=== PATIENT | female | born 1980 | race Hispanic/Latino ===

== ENCOUNTER 2018-02-27 18:19 | Emergency (ER) | payer BC ==
[~2018-02-27] VITALS: Ht 157.5 cm; Wt 77.1 kg
--- OUTSIDE RECORDS SUMMARY | 2018-02-27 18:22 | XMS REPORT | Clinical Summary ---
Author Author [facility] Organization [facility] Address Unknown Phone Unavailable Care Team Providers Care Technical Support Intern Name Role Phone Jacoby Lyon MD PCP Allergies No Known Allergies Current Medications Prescription Sig. Disp. Refills Start End Date Status Date hydrochlorothiazide TAKE ONE (1) TABLET(S) BY 11 06/01/20 Active (HYDRODIURIL) 25 MG MOUTH ONCE A DAY. 16 tablet SUMAtriptan (IMITREX) 100 TAKE ONE (1) TABLET(S) BY 5 06/11/20 Active MG tablet MOUTH ONE TIME NEEDED 16 DIRECTED, MAY REPEAT IN 2 HOURS IF NEEDED. MAX OF 2 TABLETS IN 24 HOURS. LORAZepam (ATIVAN) 0.5 MG TAKE ONE (1) TABLET(S) BY 0 04/23/20 Active tablet MOUTH TWICE A DAY 16 NEEDED FOR ANXIETY AT HOME. ondansetron ODT (ZOFRAN Take 1 tablet (4 mg 25 tablet 0 07/22/20 Active ODT) 4 MG disintegrating total) by mouth every 8 16 tablet (eight) hours as needed for nausea or vomiting for up to 25 doses. Active Problems No known active problems Family History Relation Name Status Comments Daughter Alive Father Alive Mother Alive Social History Tobacco Use Types Packs/Day Years Used Date Never Smoker Alcohol Use Drinks/Week oz/Week Comments Yes 1 glass per month Sex Assigned at Date Recorded Not on file Last Filed Vital Signs Not on file Plan of Treatment Health Maintenance Due Date Last Done Comments PAP SMEAR 2000 INFLUENZA VACCINE 06/27/2017 Results Not on fileafter 02/26/2017 Insurance Payer Benefit Subscriber ID Type Phone Address Plan / Group BCBS BCBS xxxxxxxxxxxx PPO CHOICE PPO/IBIS GRIMALDO PPO
[2018-02-27] MEDS ORDERED: SODIUM CHLORIDE 0.9% 1000ML 1,000 ML ONE (18:45)
[2018-02-27] MEDS ORDERED: ONDANSETRON HCL 4 MG ORAL DISINTEGRATING TAB SL ONE (18:45)
[2018-02-27] MEDS ORDERED: DICYCLOMINE HCL 20 MG TAB PO ONE (19:45)
[2018-02-27] MEDS ORDERED: ZOFRAN ODT4 MG SL (19:55)
[2018-02-27 20:18] VITALS: BP 134/72
== END 2018-02-27 20:22 | disposition home or self-care (01) ==
LOC: FSED 18:19
DX: R10.31 Right lower quadrant pain (principal); R11.0 Nausea; R19.7 Diarrhea, unspecified; A09 Infectious gastroenteritis and colitis, unspecified; I10 Essential (primary) hypertension
CPT/HCPCS: 36415; 74177; 80048; 81003; 81025; 83690; 85025; 96374; 99284; J7030

== ENCOUNTER → 2018-03-16 | Day surgery (SDC) | payer BC ==
[~2018-03-16] MED LIST: ACETAMINOPHEN 1000 MG/100 ML 100 ML IV ONE; FENTANYL CITRATE/PF 100MCG/2 ML INJ ONE; HYDROCHLOROTHIA25 MG PO; HYOSCYAMINE SULFATE 0.5 MG/ML AMP ONE; LIDOCAINE HCL 2% LOCAL INJ 5 ML SDV VIAL INJ ONE; MIDAZOLAM HCL 2 MG/2 ML VIAL ONE; POTASSIUM PO; PROPOFOL IV EMULSION 10 MG/ML 50 ML VIAL ONE; VITAMIN D1000 UNI1 PO; ZOFRAN ODT4 MG SL; ZYRTEC10 M3 PO
--- OUTSIDE RECORDS SUMMARY | 2018-03-16 13:25 | XMS REPORT | Continuity of Care Document ---
Author Author [facility] Organization [facility] Address [address] [place] [address] Phone Unavailable Care Team Providers Care Certified Bench Jeweler Technician Name Role Phone PANDA COLEMAN MD PCP Insurance Providers Guarantor Jaja Deluna Address [address] [place] [address] Email [email or web address] Payer [facility] Policy Number [id number] Subscriber's Name Jaja Deluna Relationship 18 Self / Same As Patient Group Number [id number] Group Name [facility] Effective Date 17 Advance Directives Directive Response Recorded Date/Time Does the patient have an advance directive? No 09/13/12 9:04am If yes, is advance directive on file with [facility]? No 09/13/12 9:04am If not on file with [facility] will patient provide a copy? No 09/13/12 9:04am Problems No problem information available. Medications Current Home Medications Medication Dose Units Route Directions Days Qty Instructions Start Date Ondansetron (Zofran Odt) 4 Mg Tab.rapdis 4 Mg Sublingual Every 6 Hours as needed for Nausea 14 may substitute standard tablets vs ODT 02/27/18 Social History Smoking Status Start Date Stop Date Never Smoker Hospital Discharge Instructions No hospital discharge instruction information available. Plan of Care Discharge Date 02/27/18 8:22pm Disposition HOME, SELF-CARE Condition at Discharge Stable Instructions/Education Provided Abdominal Pain - Adult Forms Provided Work/School Excuse Prescriptions See Medication Section Referrals PANDA COLEMAN MD Address: [address] [place] [phone] Additional Instructions/Education Follow up with your doctor as scheduled next week. Be sure to complete your colonoscopy as planned with your physician. You may use the prescription provided for you by your doctor for cramping and here we were given another prescription which will treat nausea. Functional Status No functional status information available. Allergies, Adverse Reactions, Alerts No known allergies. Immunizations No immunization information available. Vital Signs Acute Vital Signs Vital Response Date/Time Pulse Pulse Rate (adult) 85 bpm (60 - 90) 02/27/2018 8:18pm Respiratory Rate 16 bpm (12 - 24) 02/27/2018 8:18pm Blood Pressure 134/72 mm Hg 02/27/2018 8:18pm Height 5 ft 2 in 02/27/2018 6:30pm Weight 170 lb 02/27/2018 6:30pm Body Mass Index 31.1 kg/m^2 02/27/2018 6:30pm Results No relevant diagnostic test, laboratory data and/or discharge summary information available. Procedures No procedure information available. Encounters Encounter Location Arrival/Admit Date Discharge/Depart Date Attending Provider Departed Emergency Room [facility] 02/27/18 6:19pm 8:22pm KOJO TOMPKINS MD
--- OUTSIDE RECORDS SUMMARY | 2018-03-16 13:25 | XMS REPORT | Clinical Summary ---
Author Author [facility] Address Unknown Phone Unavailable Care Team Providers Care Co Supervisor Grounds And Landscape Name Role Phone Jacoby Lyon MD PCP [...] Done Comments PAP SMEAR 2000 INFLUENZA VACCINE 06/27/2018 Results Not on fileafter 03/15/2017 Insurance Payer Benefit Subscriber ID Type Phone Address Plan / Group BCBS BCBS xxxxxxxxxxxx PPO CHOICE PPO/IBIS GRIMALDO PPO
--- NOTE | 2018-03-16 18:18 | Operative Report ---
DATE OF PROCEDURE: March 16, 2018 REFERRING PHYSICIAN: PANDA COLEMAN MD PROCEDURE PERFORMED: Esophagogastroduodenoscopy with biopsies and a colonoscopy with biopsies. INDICATIONS FOR ESOPHAGOGASTRODUODENOSCOPY: Nausea, heartburn, bloating. INDICATIONS FOR COLONOSCOPY: Lower abdominal pain, constipation, history of bright red blood per rectum. MEDICATION: Patient was done under MAC. Please see anesthesiologist's note. PROCEDURE: With patient in the left lateral decubitus position, flexible fiberoptic Olympus gastroscope was introduced into the esophagus under direct visualization without any difficulty. There was some patchy erythema noted in distal esophagus. The scope was then advanced with ease into the stomach. Mucosa overlying the antrum revealed some serpiginous ulcers and erosions. Biopsies were obtained. Also biopsies were obtained from the inflamed gastric mucosa and sent to stain for H. pylori. Pylorus appeared to be of normal contour and shape. Was intubated with ease and the scope was advanced all the way to the 2nd portion of the duodenum. The scope was then withdrawn slowly. Mucosa overlying the proximal 2nd portion and the duodenal bulb appeared to be within normal limits. The scope was then withdrawn back into the stomach and retroflexed and mucosa overlying the fundus appeared to be within normal limits. A minute nodule was noted in the cardia that as biopsied. The scope was then straightened out. The stomach was decompressed. The scope was subsequently withdrawn. Patient tolerated the procedure well. IMPRESSION: 1. Distal esophagitis. 2. Minute nodule cardia, biopsied. 3. Gastritis, erosive, biopsied. Biopsy sent stain for H. pylori. PLAN: Follow up histology. Initiate Protonix 40 mg 1 p.o. q.a.m. a.c. PROCEDURE: Patient was then turned around and after adequate lubrication of the anal canal a flexible fiberoptic Olympus colonoscope was inserted into the rectum with ease and advanced all the way to the cecum. Prep overall was suboptimal primarily in the right colon. The ileocecal valve was intubated. The scope was advanced into the terminal ileum. Biopsies were obtained. The scope was then withdrawn back into the colon. It was then withdrawn slowly. Whatever was visualized of the mucosa overlying the cecum, ascending colon and transverse colon appeared to be within normal limits. The mucosa overlying the descending colon also grossly appeared to be within normal limits. The mucosa overlying the sigmoid and rectum revealed some patchy areas of mild to moderate inflammatory changes and biopsies were obtained. The scope was then retroflexed into the distal rectum and the area around the dentate line appeared to be within normal limits. The scope was then straightened out. It was subsequently withdrawn. Patient tolerated the procedure well. IMPRESSION 1. Suboptimal prep. 2. Mild proctosigmoiditis. PLAN: Follow up histology. Initiate high-fiber low-fat diet. Initiate high-fiber supplement. Increase water intake to at least 64 ounces of water a day. Initiate Linzess 145 mcg one p.o. q.a.m. a.c. Start VSL#3 DS one p.o. b.i.d. Job#: [id number] cc:PANDA COLEMAN MD
== END | disposition home or self-care (01) ==
LOC: OR 13:22
PROVIDERS: ATTEND Internal Medicine Gastroenterology
DX: K29.50 Unspecified chronic gastritis without bleeding (principal); K31.7 Polyp of stomach and duodenum; K25.9 Gastric ulcer, unspecified as acute or chronic, without hemorrhage or perforation; K20.9 Esophagitis, unspecified; K31.89 Other diseases of stomach and duodenum; K63.89 Other specified diseases of intestine; K59.00 Constipation, unspecified; K62.89 Other specified diseases of anus and rectum; I10 Essential (primary) hypertension; E55.9 Vitamin D deficiency, unspecified; E87.6 Hypokalemia; Z01.810 Encounter for preprocedural cardiovascular examination; Z68.30 Body mass index [BMI] 30.0-30.9, adult
CPT/HCPCS: 43239; 45380; 81025; 93005; J1980; J2001; J2250; 45378

== ENCOUNTER → 2018-04-06 | Outpatient (CLI) | payer BC ==
[~2018-04-06] MED LIST changes: -ACETAMINOPHEN 1000 MG/100 ML 100 ML IV ONE; -FENTANYL CITRATE/PF 100MCG/2 ML INJ ONE; -HYOSCYAMINE SULFATE 0.5 MG/ML AMP ONE; -LIDOCAINE HCL 2% LOCAL INJ 5 ML SDV VIAL INJ ONE; -MIDAZOLAM HCL 2 MG/2 ML VIAL ONE; -PROPOFOL IV EMULSION 10 MG/ML 50 ML VIAL ONE
--- NOTE | 2018-04-06 18:25 | Diagnostic Imaging Report ---
PROCEDURE:US GALLBLADDER COMPARISON:CT, CT ABDOMEN/PELVIS WO, 09/14/2012, 20:30. INDICATIONS:ruq pain TECHNIQUE: Damon-scale and color doppler transverse and longitudinal images of the right upper quadrant of the abdomen were obtained. FINDINGS: Liver: 15.6 cm in right mid-clavicular line. Increased echogenicity. No masses. Main portal vein: 1.0 cm, hepatopetal flow Gallbladder: Multiple echogenic, non-shadowing, non-mobile foci are noted in the gallbladder wall at the fundus and body, with the largest measuring 0.5 x 0.6 x 0.5 cm. No sludge. No wall thickening or pericholecystic fluid. Common Bile Duct: 0.3 cm Sonographic Bojorquez's sign: Negative Right kidney: 9.6 cm. Normal echogenicity. No solid masses, stones or hydronephrosis. Pancreas: The visualized portions are unremarkable. Inferior vena cava: Patent Aorta: Within normal limits Ascites: None in the right upper quadrant of the abdomen. CONCLUSION: 1. Multiple gallbladder polyps, with the largest measuring approximately 0.6 cm. Recommend followup right upper quadrant ultrasound in 6 months given its size. 2. Borderline to mild hepatomegaly with diffuse fatty infiltration. No focal lesions. Waldo Charles M.D. Dictated by: Waldo Charles M.D. on 04/06/2018 at 18:27 Electronically approved by: Waldo Charles M.D. on 04/06/2018 at 18:27
== END ==
LOC: US 16:21
PROVIDERS: ATTEND Internal Medicine Gastroenterology
DX: R10.11 Right upper quadrant pain (principal)
CPT/HCPCS: 76705

== ENCOUNTER → 2018-05-15 | Outpatient (CLI) | payer BC ==
--- NOTE | 2018-05-15 19:50 | Diagnostic Imaging Report ---
Hepatobiliary Scan with Gallbladder Ejection Fraction Clinical information: 37 F with RUQ abdominal pain x 1 year and severe nausea with meals. Also gallbladder polyps. Technique: Following intravenous administration of 6.6 millicuries of Tc-99m mebrofenin, dynamic images of the abdomen in the anterior projection were obtained through 40 minutes. Sincalide (CCK analog) 1.5 micrograms was administered intravenously over 30 minutes with additional imaging for determination of gallbladder ejection fraction. Discussion: Perfusion of the liver is normal. Extraction of tracer by the liver parenchyma is normal. Tracer appears promptly within the biliary tract. The gallbladder begins to fill by 5 minutes post injection of tracer and fills adequately. Tracer is seen in the small bowel by 16 minutes. The gallbladder ejection fraction with sincalide is 19% (normal greater than 40%). Impression: 1. Filling of the gallbladder excludes acute cystic duct obstruction/acute cholecystitis. 2. The decreased gallbladder ejection fraction of 19% supports the clinical diagnosis of chronic cholecystitis/gallbladder dyskinesia. Signed by: Dr. Nell Sewell M.D. on 05/15/2018 7:46 PM
== END | disposition home or self-care (01) ==
LOC: NM 08:14
PROVIDERS: ATTEND Internal Medicine Gastroenterology
DX: K82.4 Cholesterolosis of gallbladder (principal); R10.11 Right upper quadrant pain
CPT/HCPCS: 78227; A9537

== ENCOUNTER → 2018-11-30 | Day surgery (SDC) | payer BC ==
[2018-11-29 10:05] LABS: BASOPHILS # (AUTO) 0.1 (0.0-0.1); BASOPHILS % 0.7 % (0.0-1.0); EOSINOPHILS # (AUTO) 0.1 (0.0-0.4); EOSINOPHILS % 1.9 % (0.0-6.0); HEMATOCRIT 38.4 % (34.2-44.1); LYMPHOCYTES # (AUTO) 1.9 (1.0-3.2); LYMPHOCYTES % 27.7 % (18.0-39.1); MEAN CORPUSCULAR HEMOGLOBIN 32.3 pg (28-32); MEAN CORPUSCULAR HGB CONC 33.9 g/dL (31-35); MEAN CORPUSCULAR VOLUME 95.3 fL (81-99); MONOCYTES # (AUTO) 0.5 (0.2-0.8); MONOCYTES % 7.3 % (4.4-11.3); NEUTROPHILS # (AUTO) 4.3 (2.1-6.9); NEUTROPHILS % 61.2 % (38.7-80.0); PLATELET COUNT 296 x10e3/uL (140-360); RED BLOOD COUNT 4.03 x10e6/uL (3.6-5.1); RED CELL DISTRIBUTION WIDTH 12.8 % (11.7-14.4)
[2018-11-29 10:09] LABS: CLARITY,URINE CLEAR (CLEAR); COLOR,URINE YELLOW (YELLOW)
[2018-11-29 10:10] LABS: BILIRUBIN,URINE NEGATIVE (NEGATIVE); KETONES,URINE NEGATIVE (NEGATIVE); LEUKOCYTE ESTERASE ,URINE TRACE (NEGATIVE); NITRITE,URINE NEGATIVE (NEGATIVE); PROTEIN,URINE DIPSTICK NEGATIVE (NEGATIVE); URINE UROBILINOGEN 0.2 mg/dL (0.2 - 1)
[2018-11-29 10:24] LABS: ALANINE AMINOTRANSFERASE 15 IU/L (0-55); ALBUMIN/GLOBULIN RATIO 1.3 (0.8-2.0); ALKALINE PHOSPHATASE 56 IU/L (40-150); ANION GAP 10.5 mmol/L (8-16); BLOOD UREA NITROGEN 19 mg/dL (7-26); BUN/CREATININE RATIO 22 (6-25); CARBON DIOXIDE 28 mmol/L (22-29); CHLORIDE 98 mmol/L (98-107); CREATININE, SERUM 0.85 mg/dL (0.57-1.11); EST GLOMERULAR FILTRATION RATE > 60 ML/MIN (60-); GLUCOSE 90 mg/dL (74-118); POTASSIUM 3.5 mmol/L (3.5-5.1); SODIUM 133 mmol/L (136-145)
[~2018-11-30] MED LIST changes: +BUPIVACAINE 0.5%/EPI 30 ML SDV INJ ONE; +DEXAMETHASONE SOD PHOS INJ 4 MG/ML VIAL ONE; +FENTANYL CITRATE/PF 100MCG/2 ML INJ ONE; +GLYCOPYRROLATE INJ 1MG/ 5 ML SYR ONE; +HYDROCODONE/APAP 7.5MG-325MG 1 EA TAB ONE; +HYDROMORPHONE 2MG/ML 2 MG/ML ML ONE; +KETOROLAC TROMETHAMINE 30 MG/ML VIAL ONE; +LIDOCAINE HCL 2% LOCAL INJ 5 ML SDV VIAL INJ ONE; +MIDAZOLAM HCL 2 MG/2 ML VIAL ONE; +NEOSTIGMINE 5 MG/5ML SYR ONE; +ONDANSETRON HCL INJ 2 MG/ML VIAL ONE; +PANTOPRAZOLE SO40 MG PO; +PROPOFOL IV EMULSION 10 MG/ML 20 ML VIAL ONE; +ROCURONIUM BROMIDE 10 MG/ML 5ML VIAL ONE; +SEVOFLURANE INHAL SOLN 250 ML PEN BTL ONE; +WOMEN'S DAILY1 EACH PO
--- OUTSIDE RECORDS SUMMARY | 2018-11-30 05:55 | XMS REPORT | Clinical Summary ---
Author Author [facility] Address Unknown Phone Unavailable Care Team Providers Care Scientific Research Associate Name Role Phone Jacoby Lyon MD PCP Allergies No Known Allergies Medications End Date Status Medication Sig Dispensed Refills Start Date Active hydrochlorothiazide TAKE ONE (1) 11 (HYDRODIURIL) 25 MG TABLET(S) BY 6 tablet MOUTH ONCE A DAY. Active SUMAtriptan (IMITREX) 100 TAKE ONE (1) 5 201 MG tablet TABLET(S) BY 6 MOUTH ONE TIME NEEDED DIRECTED, MAY REPEAT IN 2 HOURS IF NEEDED. MAX OF 2 TABLETS IN 24 HOURS. Active LORAZepam (ATIVAN) 0.5 MG TAKE ONE (1) 0 tablet TABLET(S) BY 6 MOUTH TWICE A DAY NEEDED FOR ANXIETY AT HOME. Active ondansetron ODT (ZOFRAN Take 1 tablet 25 tablet 0 ODT) 4 MG disintegrating (4 mg total) 6 tablet by mouth every 8 (eight) hours as needed for nausea or vomiting for up to 25 doses. Active Problems No known active problems Family History Relation Name Status Comments Daughter Alive Father Alive Mother Alive Social History Date Tobacco Use Types Packs/Day Years Used Never Smoker Alcohol Use Drinks/Week oz/Week Comments Yes 1 glass per month Sex Assigned at Date Recorded Not on file Industry Job Start Date Occupation Not on file Not on file Not on file Travel End Travel History Travel Start No recent travel history available. Last Filed Vital Signs Not on file Plan of Treatment Health Maintenance Due Date Last Done Comments CERVICAL CANCER SCREENING 2000 INFLUENZA VACCINE 06/27/2018 Results Not on fileafter 11/29/2017 Insurance Payer Benefit Subscriber ID Type Phone Address Plan / Group BCBS BCBS xxxxxxxxxxxx PPO CHOICE PPO/IBIS GRIMALDO PPO Advance Directives Patient has advance care planning documents on file. For more information, plestefanie e contact: Hoang Sorenson [address] [place] [address]
--- OUTSIDE RECORDS SUMMARY | 2018-11-30 05:55 | XMS REPORT | Clinical Summary ---
Author Author MARIANNE [facility] Organization [facility] Address Unknown Phone Unavailable Care Team Providers Care Seo Professional Name Role Phone SabineDariana MEAGHAN PCP Allergies No Known Allergies Medications End Date Status Medication Sig Dispensed Refills Start Date Active hydroCHLOROthiazide Take 25 mg by 0 (MICROZIDE) 12.5 mg mouth daily . capsule Active pantoprazole (PROTONIX) Take 40 mg by 0 40 MG tablet mouth daily. Active szmvcnhvglib-Cz-choz-mine Take 1 tablet 0 rals 27-0.4 mg Tab by mouth daily. Active potassium chloride SA Take 20 mEq 0 (K-DUR,KLOR-CON) 20 MEQ by mouth 2 tablet (two) times daily. Active cholecalciferol, vitamin Take 1,000 0 D3, 1,000 unit capsule Units by mouth daily. 05/18/2019 Active aspirin 81 MG EC tablet Take 1 tablet 0 (81 mg total) 8 by mouth daily. Active Problems Problem Noted Date Chest tightness 05/15/2018 HTN (hypertension) 05/15/2018 Encounters Care Team Description Date Type Specialty Giana Dickerson MD Hasan, MD Roselyn Taylor, Jorge West MD Chest tightness (Primary Dx); Abnormal ECG 05/15/2018 Emergency Cardiology - 05/17/2018 05/15/2018 Orders Only General Internal Medicine after 11/29/2017 Social History Date Tobacco Use Types Packs/Day Years Used Never Smoker Smokeless Tobacco: Never Used Alcohol Use Drinks/Week oz/Week Comments Yes Sex Assigned at Date Recorded Not on file Industry Job Start Date Occupation Not on file Not on file Not on file Travel End Travel History Travel Start No recent travel history available. Last Filed Vital Signs Time Taken Vital Sign Reading 05/17/2018 3:00 PM CDT Blood Pressure 117/65 05/17/2018 3:00 PM CDT Pulse 88 05/17/2018 3:00 PM CDT Temperature 36.5 C (97.7 F) 05/17/2018 3:00 PM CDT Respiratory Rate 18 05/17/2018 3:00 PM CDT Oxygen Saturation 98% - Inhaled Oxygen - Concentration 05/17/2018 5:16 AM CDT Weight 73.8 kg (162 lb 12.8 oz) 05/15/2018 6:49 PM CDT Height 157.5 cm (5' 2") 05/17/2018 5:16 AM CDT Body Mass Index 29.78 Plan of Treatment Not on file Procedures Comments Procedure Name Priority Date/Time Associated Diagnosis RHYTHM STRIP - SCAN 05/18/2018 11:30 AM CDT ECHOCARDIOGRAM REPORT - 05/17/2018 SCAN 10:52 AM CDT NM CARDIAC PET PERFUSION Routine 05/17/2018 REST AND/OR STRESS 9:35 AM CDT TREADMILL Routine 05/17/2018 TOLERANCE(NON-NUCLEAR 9:23 AM CDT TREADMILL) ECG 12-LEAD Routine 05/17/2018 9:20 AM CDT ECG 12-LEAD Routine 05/17/2018 9:20 AM CDT Procedure Note - Interface, External Ris In - 05/17/2018 9:38 AM CDT Ventricula r Rate 70 BPM Atrial Rate 70 BPM P-R Interval 144 ms QRS Duration 90 ms Q-T Interval 400 ms QTC Calculatio n(Bazett) 432 ms P Camden 73 degrees R Camden 72 degrees T Camden 42 degrees Normal sinus rhythm Nonspecifi c T wave abnormalit y Abnormal ECG US RENAL COMPLETE Routine 05/17/2018 1:45 AM CDT 2D ECHO W/ DOPPLER Routine 05/16/2018 (CW/PW/COLOR) 6:17 PM CDT VENOUS DOPPLER LEGS Routine 05/16/2018 BILATERAL 11:16 AM CDT TROPONIN I Routine 05/16/2018 10:49 AM CDT TSH/FREE T4 IF INDICATED Routine 05/16/2018 10:49 AM CDT TROPONIN I Routine 05/16/2018 4:45 AM CDT ED ECG INTERPRETATION Routine 05/16/2018 12:15 AM CDT XR CHEST 2 VIEWS STAT 05/15/2018 7:42 PM CDT RAPID TROPONIN I STAT 05/15/2018 7:18 PM CDT SCREEN, URINE STAT 05/15/2018 7:14 PM CDT URINALYSIS W/ REFLEX STAT 05/15/2018 URINE CULTURE 7:14 PM CDT CBC W/PLT COUNT & AUTO STAT 05/15/2018 DIFFERENTIAL 7:08 PM CDT D-DIMER STAT 05/15/2018 7:08 PM CDT COMPREHENSIVE METABOLIC STAT 05/15/2018 PANEL 7:08 PM CDT CBC W/PLT COUNT & AUTO STAT 05/15/2018 DIFFERENTIAL 7:08 PM CDT PT/APTT STAT 05/15/2018 7:08 PM CDT ECG 12-LEAD Routine 05/15/2018 6:47 PM CDT ECG 12-LEAD Routine 05/15/2018 6:47 PM CDT Procedure Note - Interface, External Ris In - 05/15/2018 10:55 PM CDT Ventricula r Rate 96 BPM Atrial Rate 96 BPM P-R Interval 130 ms QRS Duration 82 ms Q-T Interval 344 ms QTC Calculatio n(Bazett) 434 ms P Camden 58 degrees R Camden 47 degrees T Camden -11 degrees Normal sinus rhythm Possible Left atrial enlargemen t T wave abnormalit y, consider inferior ischemia T wave abnormalit y, consider anterolate ral ischemia Abnormal ECG No previous ECGs available after 11/29/2017 Results * RHYTHM STRIP - SCAN (05/18/2018 11:30 AM CDT) Narrative Performed At * ECHOCARDIOGRAM REPORT - SCAN (05/17/2018 10:52 AM CDT) Narrative Performed At * NM myocardial perfusion PET (rest and stress) (05/17/2018 9:35 AM CDT) Narrative Performed At FINAL REPORT [facility] PROCEDURE: Rest/Stress MYOCARDIAL PERFUSION PET with regadenoson\\XA9\\ CPT CODE: 10650 INDICATION: Chest pain HISTORY: Cardiac risk factors: Hypertension. Other cardiovascular history: No reported CAD. Recent cardiac symptoms: Chest pain, dyspnea. PROTOCOL: Limited low-dose CT imaging was performed for attenuation correction. 40.2 mCi of Rb-82 chloride was injected iv at rest, and gated PET (positron emission tomography) images were obtained. Subsequently, 40.0 mCi of Rb-82 chloride was injected iv at expected peak pharmacologic effect, and gated PET images were obtained. PRELIMINARY STRESS TEST DATA FROM NONINVASIVE CARDIOLOGY: Pharmacologic stress was by 10-second iv infusion of 0.4 mg of regadenoson. Radiotracer was injected 30 seconds after start of stress. Heart rate was 70 beats/min at rest and 118 beats/min (64% of MPHR) at tracer injection. BP was 92/51 mmHg at rest and 105/46 mmHg at tracer injection. Stress was stopped for predetermined endpoint. The patient experienced dyspnea; treatment was not required. Preliminary ECG evaluation revealed sinus rhythm with nonspecific T wave abnormality at rest and no ischemic changes with stress. (Final ECG interpretation and other stress and monitoring data are reported separately by Cardiology.) IMAGING FINDINGS: Study quality is good. Images obtained after rest and stress injections show normal LV activity. LV and RV volumes appear normal. Gated images obtained at rest and with stress show normal LV wall motion and thickening. LVEF at rest is 56%. LVEF at stress is 71%. IMPRESSION: 1. Normal study.2. Appropriate pharmacologic stress.3. Normal myocardial perfusion.4. Normal resting LV function. No deterioration of function is noted with pharmacologic stress.5. Normal extracardiac tracer distribution.6. No previous [facility] study for comparison. NONINVASIVE RISK STRATIFICATION: The above findings are considered low risk (<1% annual mortality rate) based on the following criterion: - Normal or small myocardial perfusion defect at rest or with stress (JACC. 2012;59(9):857-81.) Signed: Efren Garcia MD Report Verified Date/Time:05/17/2018 14:33:51 Reading Location: [address] [facility] Reading Room Procedure Note Interface, External Ris In - 05/17/2018 2:35 PM CDT FINAL REPORT PROCEDURE: Rest/Stress MYOCARDIAL PERFUSION PET with regadenoson\\XA9\\ CPT CODE: 24118 INDICATION: Chest pain HISTORY: Cardiac risk factors: Hypertension. Other cardiovascular history: No reported CAD. Recent cardiac symptoms: Chest pain, dyspnea. PROTOCOL: Limited low-dose CT imaging was performed for attenuation correction. 40.2 mCi of Rb-82 chloride was injected iv at rest, and gated PET (positron emission tomography) images were obtained. Subsequently, 40.0 mCi of Rb-82 chloride was injected iv at expected peak pharmacologic effect, and gated PET images were obtained. PRELIMINARY STRESS TEST DATA FROM NONINVASIVE CARDIOLOGY: Pharmacologic stress was by 10-second iv infusion of 0.4 mg of regadenoson. Radiotracer was injected 30 seconds after start of stress. Heart rate was 70 beats/min at rest and 118 beats/min (64% of MPHR) at tracer injection. BP was 92/51 mmHg at rest and 105/46 mmHg at tracer injection. Stress was stopped for predetermined endpoint. The patient experienced dyspnea; treatment was not required. Preliminary ECG evaluation revealed sinus rhythm with nonspecific T wave abnormality at rest and no ischemic changes with stress. (Final ECG interpretation and other stress and monitoring data are reported separately by Cardiology.) IMAGING FINDINGS: Study quality is good. Images obtained after rest and stress injections show normal LV activity. LV and RV volumes appear normal. Gated images obtained at rest and with stress show normal LV wall motion and thickening. LVEF at rest is 56%. LVEF at stress is 71%. IMPRESSION: 1. Normal study. 2. Appropriate pharmacologic stress. 3. Normal myocardial perfusion. 4. Normal resting LV function. No deterioration of function is noted with pharmacologic stress. 5. Normal extracardiac tracer distribution. 6. No previous [facility] study for comparison. NONINVASIVE RISK STRATIFICATION: The above findings are considered low risk (<1% annual mortality rate) based on the following criterion: - Normal or small myocardial perfusion defect at rest or with stress (JACC. 2012;59(9):857-81.) Signed: Efren Garcia MD Report Verified Date/Time: 05/17/2018 14:33:51 Reading Location: [address] Reading Room Performing Organization Address City/[facility] Phone Number GE RIS * Treadmill tolerance(Non-Nuclear Treadmill) (05/17/2018 9:23 AM CDT) Narrative Performed At Protocol Name Regadenoson GE MUSE Time In Exercise Phase 00:01:00 Max. Systolic BP 105 mmHg Max Diastolic BP 46 mmHg Max Heart Rate 118 BPM Max Predicted Heart Rate 182 BPM Reason For Termination Predetermined end point Reason for Test Chest Pain Target HR Formula (220 - Age)*100% Arrhythmias none Resting ECG Normal sinus rhythm nonspecific T wave abnormality ST Changes No Significant Changes,Twave inversion Inferior l Overall Impression Indeterminate due to pharmacological stress Chest Pain none HR Response To Exercise BP Response To Exercise HCTZ,ASA Confirmed by fellow Emery Lynn ([id number]) on 05/17/2018 11:07:59 AM Confirmed by MD CRUZ JOSEPH P ([id number]) on 05/21/2018 4:59:41 PM Procedure Note Interface, External Ris In - 05/21/2018 4:59 PM CDT Protocol Name Regadenoson Time In Exercise Phase 00:01:00 Max. Systolic BP 105 mmHg Max Diastolic BP 46 mmHg Max Heart Rate 118 BPM Max Predicted Heart Rate 182 BPM Reason For Termination Predetermined end point Reason for Test Chest Pain Target HR Formula (220 - Age)*100% Arrhythmias none Resting ECG Normal sinus rhythm nonspecific T wave abnormality ST Changes No Significant Changes,Twave inversion Inferior l Overall Impression Indeterminate due to pharmacological stress Chest Pain none HR Response To Exercise BP Response To Exercise HCTZ,ASA Confirmed by fellow Emery Lynn ([id number]) on 05/17/2018 11:07:59 AM Confirmed by MD CRUZ JOSEPH P ([id number]) on 05/21/2018 4:59:41 PM Performing Organization Address [facility] Phone Number GE MUSE * ECG 12 lead (05/17/2018 9:20 AM CDT) Only the most recent of 2 results within the time period is included. Narrative Performed At Ventricular Rate 70 BPM GE MUSE Atrial Rate 70 BPM P-R Interval 144 ms QRS Duration 90 ms Q-T Interval 400 ms QTC Calculation(Bazett) 432 ms P Camden 73 degrees R Camden 72 degrees T Camden 42 degrees Normal sinus rhythm Nonspecific T wave abnormality Abnormal ECG Confirmed by MD Singleton Roberto ([id number]) on 05/17/2018 1:50:59 PM Procedure Note Interface, External Ris In - 05/17/2018 1:51 PM CDT Ventricular Rate 70 BPM Atrial Rate 70 BPM P-R Interval 144 ms QRS Duration 90 ms Q-T Interval 400 ms QTC Calculation(Bazett) 432 ms P Camden 73 degrees R Camden 72 degrees T Camden 42 degrees Normal sinus rhythm Nonspecific T wave abnormality Abnormal ECG Confirmed by MD Singleton Roberto ([id number]) on 05/17/2018 1:50:59 PM Performing Organization Address City/State/Zipcode Phone Number [place] * [facility] renal complete (05/17/2018 1:45 AM CDT) Narrative Performed At FINAL REPORT [facility] Exam: Ultrasound of the Kidneys, complete. Clinical History:Hypertension Discussion: Sonographic evaluation of the kidneys was performed. There is a prior study for direct comparison. Right kidney:9.2 x 4.5 x 5.1 cm, with cortical thickness of 1.3 cm. Normal cortical echogenicity.No mass.No shadowing calculus. No hydronephrosis. Left kidney: 10.4 x 5.2 x 5.6 cm, with cortical thickness of 1.5 cm. Normal cortical echogenicity.No mass.No shadowing calculus.No hydronephrosis. Limited doppler evaluation of bilateral main renal arteries and veins demonstrate patency. Bladder:Unremarkable. The visualized liver is diffusely echogenic. Impression: Normal renal echogenicity. No hydronephrosis. Echogenic liver, which may be seen with parenchymal disease such as steatosis. Signed: Xuan Cifuentes MD Report Verified Date/Time:05/17/2018 03:33:38 Reading Location: [address] Reading Room Procedure Note Interface, External Ris In - 05/17/2018 3:35 AM CDT FINAL REPORT Exam: Ultrasound of the Kidneys, complete. Clinical History: Hypertension Discussion: Sonographic evaluation of the kidneys was performed. There is a prior study for direct comparison. Right kidney: 9.2 x 4.5 x 5.1 cm, with cortical thickness of 1.3 cm. Normal cortical echogenicity. No mass. No shadowing calculus. No hydronephrosis. Left kidney: 10.4 x 5.2 x 5.6 cm, with cortical thickness of 1.5 cm. Normal cortical echogenicity. No mass. No shadowing calculus. No hydronephrosis. Limited doppler evaluation of bilateral main renal arteries and veins demonstrate patency. Bladder: Unremarkable. The visualized liver is diffusely echogenic. Impression: Normal renal echogenicity. No hydronephrosis. Echogenic liver, which may be seen with parenchymal disease such as steatosis. Signed: Xuan Cifuentes MD Report Verified Date/Time: 05/17/2018 03:33:38 Reading Location: [address] Transitional Reading Room Performing Organization Address City/State/Zipcode Phone Number GE RIS * 2D Echo W/Doppler(CW/PW/Color) (05/16/2018 6:17 PM CDT) Ejection Fraction [facility] Narrative Performed At Transthoracic Echocardiography Report (TTE) [facility] Demographics [facility] Patient Name Teresa DELUNA of Study 05/16/2018 ELMO [id number] Female Visit Number [id number] Room Number 1105 Number Date of Birth1980Referring Physician Malou Hamilton MD Age37 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 Clinical History Chest tightness; HTN HGB 13.7 HCT 41.1 % Contrast Medium: Definity. Height: 62 inches Weight: 72.57 kg (160 lbs) BSA: 1.74 m^2 BMI: 29.26 kg/m^2 HR: 93 bpm BP: 120/81 mmHg Summary IV saline contrast injection was negative for a PFO (patent foramen ovale) at rest and post Valsalva . The LV endocardium is adequately visualized. The left ventricle is chamber size (by vol index) is normal (female - LVED vol - 29-61ml/m2). Normal LV wall thickness. All of the LV segments contract normally . Global LV systolic function normal . LVEF by Young's method of disk assessment is normal (>60%) . Normal diastolic function. The right ventricular chamber size and systolic function are within normal limits. Unable to estimate peak systolic PA pressure; inadequate TR velocity signal. No pericardial effusion is visualized. Previous Study No prior exam available for comparison. Signature Findings Left Ventricle The LV endocardium is adequately visualized. The left ventricle is chamber size (by vol index) is normal (female - LVED vol - 29-61ml/m2). Normal LV wall thickness. All of the LV segments contract normally . Global LV systolic function normal . LVEF by Young's method of disk assessment is normal (>60%) . Normal diastolic function. Left AtriumLA size is normal (16-34 ml/m2) . Right VentricleThe right ventricular chamber size and systolic function are within normal limits. Right Atrium RA size is normal. Aortic Valve Normal AoV structure and function. Mitral Valve Normal MV structure and function. Tricuspid ValveNormal TV structure and function. Unable to estimate peak systolic PA pressure; inadequate TR velocity signal. Pulmonic Valve Normal PV structure and function. AortaAortic root size (SInus of Valsalva diameter) is normal . Proximal ascending aorta size is normal . PericardiumNo pericardial effusion is visualized. IVC/SVC/PA/PV/PleuralThe estimated RA pressure by IVC dynamics 0-5mmHg . Chambers/Structures Left Atrium LA Dimension: 3.59 cmLA Area: 10.04 cm^2 LA Volume: 42.8 ml LA Vol. Index: 25 ml/m^2 Left Ventricle LVIDd: 4.77 cmLVEDV:119.57 ml LVIDs: 3.26 cmLVESV:34.62 ml LV Septum Diastolic: 0.76 cmLVEF 2D Cube: 72.7 % LV PW Diastolic: 0.89 cm LVEDV Young's:76.07 mlLV FS: 31.7 % LVESV Young's:29.22 ml LVEF Young's: 60.9 %LVEDVI: 44 ml/m^2 LVESVI: 17 ml/m^2 LVOT Diameter: 2.08 cm LVEF: 71.1 % Right Atrium RA Vol. (Sngl Plane): 34.42 ml Right Ventricle RV Diast Dim.: 3.48 cm TAPSE: 2.1 cm Aorta Ao Root S of Nola.: 2.71 cmAscending Aorta: 2.61 cm Doppler/Quantitative Measurements Mitral Valve MV Peak E-Wave: 0.71 m/sMV Peak A-Wave: 0.47 m/s E/A Ratio: 1.52 Peak Gradient: 2.02 mmHg Deceleration Time: 161.5 msec MV Marky. Peak: Tissue Doppler E' Lateral Velocity: 0.11 m/s E/E': 6.59 Aortic Valve Peak Velocity: 1.43 m/sMean Velocity: 0.95 m/s Peak Gradient: 8.18 mmHg Mean Gradient: 4.15 mmHg AV Area (continuity): 2.38 cm^2 AV VTI: 26.52 cm AV DVI: 0.7 LVOT Peak Velocity: 1.1 m/sPeak Gradient: 4.86 mmHg Mean Velocity: 0.71 m/s Mean Gradient: 2.42 mmHg LVOT Diameter: 2.08 cmLVOT VTI: 18.58 cm LVOT Area: 3.4 cm^2 LVOT SV:63.1 ml LVOT CO: 5.87 l/min LVOT CI: 3.37 l/min/m^2 RVOT RVOT VTI (PW): 18.13 cm Procedure Note Interface, External Ris In - 05/17/2018 10:23 AM CDT Transthoracic Echocardiography Report (TTE) Demographics Patient Name JAJA DELUNA Date of Study 05/16/2018 ELMO Gender Female Visit Number [id number] Race Unknown Room Number 1105 Number Date of 1980 Referring Physician Malou Hamilton MD 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 Clinical History Chest tightness; HTN HGB 13.7 HCT 41.1 % Contrast Medium: Definity. Height: 62 inches Weight: 72.57 kg (160 lbs) BSA: 1.74 m^2 BMI: 29.26 kg/m^2 HR: 93 bpm BP: 120/81 mmHg Summary IV saline contrast injection was negative for a PFO (patent foramen ovale) at rest and post Valsalva . The LV endocardium is adequately visualized. The left ventricle is chamber size (by vol index) is normal (female - LVED vol - 29-61ml/m2). Normal LV wall thickness. All of the LV segments contract normally . Global LV systolic function normal . LVEF by Young's method of disk assessment is normal (>60%) . Normal diastolic function. The right ventricular chamber size and systolic function are within normal limits. Unable to estimate peak systolic PA pressure; inadequate TR velocity signal. No pericardial effusion is visualized. Previous Study No prior exam available for comparison. Signature Findings Left Ventricle The LV endocardium is adequately visualized. The left ventricle is chamber size (by vol index) is normal (female - LVED vol - 29-61ml/m2). Normal LV wall thickness. All of the LV segments contract normally . Global LV systolic function normal . LVEF by Young's method of disk assessment is normal (>60%) . Normal diastolic function. Left Atrium LA size is normal (16-34 ml/m2) . Right Ventricle The right ventricular chamber size and systolic function are within normal limits. Right Atrium RA size is normal. Aortic Valve Normal AoV structure and function. Mitral Valve Normal MV structure and function. Tricuspid Valve Normal TV structure and function. Unable to estimate peak systolic PA pressure; inadequate TR velocity signal. Pulmonic Valve Normal PV structure and function. Aorta Aortic root size (SInus of Valsalva diameter) is normal . Proximal ascending aorta size is normal . Pericardium No pericardial effusion is visualized. IVC/SVC/PA/PV/Pleural The estimated RA pressure by IVC dynamics 0-5mmHg . Chambers/Structures Left Atrium LA Dimension: 3.59 cm LA Area: 10.04 cm^2 LA Volume: 42.8 ml LA Vol. Index: 25 ml/m^2 Left Ventricle LVIDd: 4.77 cm LVEDV:119.57 ml LVIDs: 3.26 cm LVESV:34.62 ml LV Septum Diastolic: 0.76 cm LVEF 2D Cube: 72.7 % LV PW Diastolic: 0.89 cm LVEDV Young's:76.07 ml LV FS: 31.7 % LVESV Young's:29.22 ml LVEF Young's: 60.9 % LVEDVI: 44 ml/m^2 LVESVI: 17 ml/m^2 LVOT Diameter: 2.08 cm LVEF: 71.1 % Right Atrium RA Vol. (Sngl Plane): 34.42 ml Right Ventricle RV Diast Dim.: 3.48 cm TAPSE: 2.1 cm Aorta Ao Root S of Nola.: 2.71 cm Ascending Aorta: 2.61 cm Doppler/Quantitative Measurements Mitral Valve MV Peak E-Wave: 0.71 m/s MV Peak A-Wave: 0.47 m/s E/A Ratio: 1.52 Peak Gradient: 2.02 mmHg Deceleration Time: 161.5 msec MV Marky. Peak: Tissue Doppler E' Lateral Velocity: 0.11 m/s E/E': 6.59 Aortic Valve Peak Velocity: 1.43 m/s Mean Velocity: 0.95 m/s Peak Gradient: 8.18 mmHg Mean Gradient: 4.15 mmHg AV Area (continuity): 2.38 cm^2 AV VTI: 26.52 cm AV DVI: 0.7 LVOT Peak Velocity: 1.1 m/s Peak Gradient: 4.86 mmHg Mean Velocity: 0.71 m/s Mean Gradient: 2.42 mmHg LVOT Diameter: 2.08 cm LVOT VTI: 18.58 cm LVOT Area: 3.4 cm^2 LVOT SV:63.1 ml LVOT CO: 5.87 l/min LVOT CI: 3.37 l/min/m^2 RVOT RVOT VTI (PW): 18.13 cm Performing Organization Address City/State/Zipcode Phone Number [facility]ART[facility] medineering * Venous doppler legs bilateral (05/16/2018 11:16 AM CDT) Ejection Fraction [facility] [employer] CPACS Impressions Performed At Right Impression [facility] 1. There is no deep venous obstruction in the common femoral, profunda [facility] [facility] femoral, femoral, popliteal, posterior tibial or peroneal veins. 2. There is no superficial venous obstruction in the great saphenous vein. Left Impression 1. There is no deep venous obstruction in the common femoral, profunda femoral, femoral, popliteal, posterior tibial or peroneal veins. 2. There is no superficial venous obstruction in the great saphenous vein. Conclusions Summary Venous duplex imaging and compression of the bilateral lower extremities were performed. The veins were adequately visualized. The bilateral venous systems were patent and compressible with no evidence of thrombus. The venous Doppler waveforms were phasic with respiration . 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 InterpretingDeysi Daniels RVT, Bam ANTOINE, RP Procedure Type of Study: Veins: Lower Extremities DVT Study, VENOUS DOPPLER LEG, BILATERAL. Indications for Study:Leg pain . Patient Status:Routine. Study Location:Vascular Lab. Technical Quality:Adequate visualization. Procedure Note Interface, External Ris In - 05/16/2018 12:29 PM CDT PV LAB - Lower Extremities DVT Study Demographics Patient Name JAJA DELUNA Date of Study 05/16/2018 ELMO Age 37 Visit Number [id number] Gender Female Date of 1980 Number Referring [facility] Room Number 1105 Physician Christy Machine Crater Wali Shaikh. Interpreting Deysi Daniels RVT, GIOVANNI Luque MD, [facility] Procedure Type of Study: Veins: Lower Extremities DVT Study, VENOUS DOPPLER LEG, BILATERAL. Indications for Study:Leg pain . Patient Status:Routine. Study Location:Vascular Lab. Technical Quality:Adequate visualization. Impressions Right Impression 1. There is no deep venous obstruction in the common femoral, profunda femoral, femoral, popliteal, posterior tibial or peroneal veins. 2. There is no superficial venous obstruction in the great saphenous vein. Left Impression 1. There is no deep venous obstruction in the common femoral, profunda femoral, femoral, popliteal, posterior tibial or peroneal veins. 2. There is no superficial venous obstruction in the great saphenous vein. Conclusions Summary Venous duplex imaging and compression of the bilateral lower extremities were performed. The veins were adequately visualized. The bilateral venous systems were patent and compressible with no evidence of thrombus. The venous Doppler waveforms were phasic with respiration . Signature Velocities are measured in cm/s ; Diameters are measured in cm Performing Organization Address [facility] Phone Number [facility] * TSH/Free T4 If Indicated (05/16/2018 10:49 AM CDT) TSH 0.81 0.35 - 4.94 uIU/mL [facility] Specimen Blood - Arm, Left Performing Organization Address [facility] [address] [facility] * Troponin I (05/16/2018 10:49 AM CDT) Only the most recent of 2 results within the time period is included. Troponin I <0.01 0.00 - 0.03 ng/mL [facility] Specimen Blood - Arm, Left Narrative Performed At Troponin I (TnI) levels must be interpreted in the context of the presenting [facility] symptoms and the clinical findings. Elevated TnI levels indicate myocardial [facility] damage, but are not specific for ischemic heart disease. Elevated TnI levels are seen in patients with other cardiac conditions (including myocarditis and congestive heart failure), and slight TnI elevations occur in patients with other conditions, including sepsis, renal failure, acidosis, acute neurological disease, and persistent tachyarrhythmia. Performing Organization Address [facility] Phone Number [address] [address] [phone] [place] [address] * ED ECG Interpretation (05/16/2018 12:15 AM CDT) Narrative Performed At Giana Dickerson MD 05/16/2018 12:15 AM ECG/EKG Interpretation Date/Time: 05/15/2018 6:47 PM Performed by: GIANA DICKERSON Authorized by: GIANA DICKERSON The ECG was interpreted by ED physician. This ECG was not compared with previous ECG(s).The ECG is interpreted as sinus rhythm. Rate is normal rate. Heart rate is 96 BPM. T-wave inversion in lead(s) II, III, aVF, V3, V4, V5 and V6. Clinical Impression: abnormal ECGECG reviewed and does not meet STEMI criteria. Patient tolerance: Patient tolerated the procedure well with no immediate complications * XR chest 2 views (05/15/2018 7:42 PM CDT) Narrative Performed At FINAL REPORT [facility] Examination: Two view Chest X-ray. CLINICAL HISTORY: Chest pain. COMPARISON:None. The cardiomediastinal and hilar contours are unremarkable. There is no focal consolidation, pleural effusion, pneumothorax or evidence of overt pulmonary edema. There is no acute bony abnormality. IMPRESSION: No acute abnormality. Signed: Gunnar Zheng MD Report Verified Date/Time:05/15/2018 19:40:26 Reading Location: [address] Reading Room Procedure Note Interface, External Ris In - 05/15/2018 7:43 PM CDT FINAL REPORT Examination: Two view Chest X-ray. CLINICAL HISTORY: Chest pain. COMPARISON:None. The cardiomediastinal and hilar contours are unremarkable. There is no focal consolidation, pleural effusion, pneumothorax or evidence of overt pulmonary edema. There is no acute bony abnormality. IMPRESSION: No acute abnormality. Signed: Gunnar Zheng MD Report Verified Date/Time: 05/15/2018 19:40:26 Reading Location: [address] Reading Room Performing Organization Address City/State/Zipcode Phone Number [facility] * Rapid Troponin I ([facility] Only) (05/15/2018 7:18 PM CDT) Rapid Troponin I <0.05 <0.05 ng/mL [facility] [place] Specimen Blood Performing Organization Address City/State/Zipcode Phone Number MARIANNE NGUYEN [address] [place] [address] [facility] * Urinalysis w/Microscopic + Reflex to Culture (05/15/2018 7:14 PM CDT) Color, UA Yellow [facility], [facility] Clarity, UA Clear [facility] Specific [place], UA 1.010 1.001 - 1.035 [facility] pH, UA 6.0 5.0 - 8.0 [facility] Protein, UA Negative Negative [facility] Glucose, UA Negative Negative [facility] Ketones, UA Negative Negative [facility] Bilirubin, UA Negative Negative [facility] [place] Blood, UA Small (A) Negative [facility] Nitrite, UA Negative Negative [facility] [place] Leukocytes, UA Negative Negative [facility] Urobilinogen, UA 1.0 0.2 - 1.0 mg/dL [facility] Bacteria, UA Few [facility] Yeast Rare [facility] RBC, UA 5-10 /HPF [facility] [place] WBC, UA <5 /HPF [facility] SQUAMOUS EPITHELIAL <5 /HPF [facility] [place] Specimen Source [facility] [place] Specimen Urine Performing Organization Address City/[facility] Phone Number [address] [phone] [facility] [place] * Screen, urine (05/15/2018 7:14 PM CDT) Preg Test, Ur Negative [facility] Specimen Urine Performing Organization Address [facility]/[place] Phone Number [address] [phone] [facility] [place] * PT/aPTT (05/15/2018 7:08 PM CDT) Protime 10.3 9.8 - 12.0 seconds [facility] [place] INR 0.9 <=5.9 [facility] [place] PTT 23.7 (L) 25.8 - 34.5 seconds [facility] [place] Specimen Blood Narrative Performed At RECOMMENDED COUMADIN/WARFARIN INR THERAPY RANGES [facility] STANDARD DOSE: 2.0 - 3.0 Includes: PROPHYLAXIS for venous thrombosis, [facility] systemic embolization; TREATMENT for venous thrombosis and/or pulmonary embolus. [place] HIGH RISK: Target INR is 2.5-3.5 for patients with mechanical heart valves. EM[facility]ENCY CENTER, [facility] Performing Organization Address [facility]/[place] Phone Number [address] [phone] [facility] [place] * CBC with platelet count + automated diff (05/15/2018 7:08 PM CDT) WBC 8.9 4.0 - 10.0 10e3/L [facility] [place] RBC 4.45 4.00 - 5.00 10e6/L [facility] Hemoglobin 13.7 12.0 - 15.0 g/dL [facility] Hematocrit 41.1 36.0 - 45.0 % [facility] MCV 92.4 82.0 - 99.0 fL [facility] MCH 30.7 27.0 - 33.0 pg [facility] MCHC 33.2 32.0 - 36.0 g/dL [facility] [place] RDW 13.0 10.3 - 14.2 % [facility] [place] Platelets 343 150 - 430 10e3/L [facility] MPV 6.8 6.5 - 10.5 fL [facility] [place] % Neutros 63 % [facility] [place] % Lymphs 28 % [facility] [place] % Monos 7 % [facility] [place] % Eos 1 % [facility] [place] % Baso 1 % [facility] # Neutros 5.63 1.80 - 8.00 10e3/L [facility], [facility] # Lymphs 2.45 1.48 - 4.50 10e3/L [facility], [facility], [facility] # Monos 0.65 0.00 - 1.30 10e3/L [facility], [facility] # Eos 0.12 0.00 - 0.50 10e3/L [facility], [facility], [facility] # Baso 0.05 0.00 - 0.20 10e3/L [facility] Specimen Blood Performing Organization Address [facility] Phone Number [address] [address] [facility] * D-dimer, quantitative (05/15/2018 7:08 PM CDT) D-Dimer, Quant 0.29 <0.50 MG/L [facility] Specimen Blood Narrative Performed At REGARDING D-DIMER RESULTS: Results of this D-Dimer test should always be [facility] interpreted in conjunction with the patient's medical history, clinical [facility] presentation and other findings. DVT clinical diagnosis should not be based on [place] the results of [facility] D-Dimer alone. EMERGENCY [place] Performing Organization Address [facility] Phone Number [address] [address] [facility] * Comprehensive metabolic panel (05/15/2018 7:08 PM CDT) Protein, Total 7.5 6.0 - 8.5 gm/dL [facility] Albumin 4.5 3.5 - 5.0 g/dL [facility] Alkaline Phosphatase 71 30 - 115 U/L [facility] [place] Total Bilirubin 0.4 0.1 - 1.2 mg/dL [facility] Sodium 140 135 - 148 meq/L [facility] [place] Potassium 3.5 (L) 3.6 - 5.5 meq/L [facility] [place] Chloride 99 98 - 106 meq/L [facility] [place] CO2 28 24 - 32 meq/L [facility] [place] BUN 17 10 - 26 mg/dL [facility] [place] Creatinine 0.81 0.50 - 1.20 mg/dL [facility] Glucose 101 70 - 110 mg/dL [facility] [place] Calcium 9.5 8.5 - 10.5 mg/dL [facility] AST 28 5 - 40 U/L [facility] [place] ALT 30 5 - 50 U/L [facility] [place] EGFR Comment: INSUFFICIENT CLINICAL mL/min/1.73 sq m [facility] DATA TO CALCULATE ESTIMATED [facility] GFR. [place] Specimen Blood Performing Organization Address City/State/Zipcode Phone Number MARIANNE NGUYEN [address] [place], [place] [phone] [facility] [place] after 11/29/2017 Insurance Payer Benefit Subscriber ID Type Phone Address Plan / Group [employer]UE [employer]BS PPO xxxxxxxxxxxx PPO [phone] [address] [place] [address] CHOICE Advance Directives For more information, please contact: [facility] [address] [place] [address] Date Inactivated Comments Code Status Date Activated 05/17/2018 6:48 PM Full Code 05/15/2018 10:30 PM This code status was determined by: Patient
--- OUTSIDE RECORDS SUMMARY | 2018-11-30 05:55 | XMS REPORT ---
Author Author [facility] Address Unknown Phone Unavailable Care Team Providers Care All Terrain Vehicle Technician Name Role Phone OSMIN TAM Unavailable Unavailable LAYTON SUE Unavailable Unavailable Problems This patient has no known problems. Allergies, Adverse Reactions, Alerts This patient has no known allergies or adverse reactions. Medications This patient has no known medications. Results Test Description Test Time Test Comments Text Results Atomic Results Result Comments PET, CARDIAC PERFUSION MULTIPLE STUDIES, REST AND STRESS 2018-05-17 14:33:00 Reason for exam:->Chest pain FINAL REPORT PROCEDURE: Rest/Stress MYOCARDIAL PERFUSION PET with regadenoson\XA9\ CPT CODE: 92368 INDICATION: Chest pain HISTORY: Cardiac risk factors: [...] is 56%. LVEF at stress is 71%. IMPR ESSION: 1. Normal study. 2. Appropriate pharmacologic stress. 3. Normal myocardial perfusion. 4. Normal resting LV function. No deterioration of function is noted with pharmacologic stress. 5. Normal extracardiac tracer distribution. 6. No previous [facility] study for comparison. NONINVASIVE RISK STRATIFICATION: The above findings are considered low risk (<1% annual mortality rate) based on the following criterion:- Normal or small myocardial perfusion defect at rest or with stress(JACC. 2012;59(9):857-81.) Signed: Efren Garcia MDReport Verified Date/Time: 05/17/2018 14:33:51 Reading Location: [address] [facility] Reading Room U/S, RENAL, COMPLETE 2018-05-17 03:33:00 Reason for exam:->HTN FINAL REPORT Exam: Ultrasound of the Kidneys, [...] diffusely echogenic. Impression: Normal renal echogenicity. No hydronephrosis.Echogenic liver, which may be seen with parenchymal disease such as steatosis. Signed: Marcella Cifuentes MDReport Verified Date/Time: 05/17/2018 03:33:38 Reading Location: [facility] C013T [facility] Reading Room ONIN I 2018-05-16 12:52:00 TROPONIN I (BEAKER) (test chit=819) < ng/mL 0.00-0.03 Troponin I (TnI) levels must be interpreted in the context of the presenting sym ptoms and the clinical findings. Elevated TnI levels indicate myocardial damage, but are not specific for ischemic heart disease. Elevated TnI levels are seen in patients with other cardiac conditions (including myocarditis and congestive h eart failure), and slight TnI elevations occur in patients with other conditions , including sepsis, renal failure, acidosis, acute neurological disease, and per sistent tachyarrhythmia.TSH/FREE T4 IF [id number] 11:50:00* Test Item Value Reference Range Comments THYROID STIMULATING HORMONE (BEAKER) (test lwed=162) 0.81 uIU/mL 0.35-4.94 TROPONIN [id number] 05:25:00* Test Item Value Reference Range Comments TROPONIN I (BEAKER) (test zxdx=211) < ng/mL 0.00-0.03 Troponin I (TnI) levels must be interpreted in the context of the presenting sym ptoms and the clinical findings. Elevated TnI levels indicate myocardial damage, but are not specific for ischemic heart disease. Elevated TnI levels are seen in patients with other cardiac conditions (including myocarditis and congestive h eart failure), and slight TnI elevations occur in patients with other conditions , including sepsis, renal failure, acidosis, acute neurological disease, and per sistent tachyarrhythmia.RAPID TROPONIN [id number] 19:50:00* Test Item Value Reference Range Comments RAPID TROPONIN I (BEAKER) (test bdhi=0906) < ng/mL <0.05 COMPREHENSIVE METABOLIC [id number] 19:49:00* Test Item Value Reference Range Comments TOTAL PROTEIN (BEAKER) (test nilw=636) 7.5 gm/dL 6.0-8.5 ALBUMIN (BEAKER) (test xynw=4696) 4.5 g/dL 3.5-5.0 ALKALINE PHOSPHATASE (BEAKER) (test pcmz=368) 71 U/L 30-115 BILIRUBIN TOTAL (BEAKER) (test opoz=523) 0.4 mg/dL 0.1-1.2 SODIUM (BEAKER) (test zkxa=022) 140 meq/L 135-148 POTASSIUM (BEAKER) (test fcaa=206) 3.5 meq/L 3.6-5.5 CHLORIDE (BEAKER) (test hpau=617) 99 meq/L 98-106 CO2 (BEAKER) (test nqcm=316) 28 meq/L 24-32 BLOOD UREA NITROGEN (BEAKER) (test rpla=906) 17 mg/dL 10-26 CREATININE (BEAKER) (test sdci=279) 0.81 mg/dL 0.50-1.20 GLUCOSE RANDOM (BEAKER) (test sczb=381) 101 mg/dL 70-110 CALCIUM (BEAKER) (test twoy=346) 9.5 mg/dL 8.5-10.5 AST (SGOT) (BEAKER) (test wgzr=758) 28 U/L 5-40 ALT (SGPT) (BEAKER) (test lmjt=735) 30 U/L 5-50 EGFR (BEAKER) (test kxkg=2969) mL/min/1.73 sq m INSUFFICIENT CLINICAL DATA TO CALCULATE ESTIMATED GFR. HEPTOBILIARY W [id number] 19:44:00 [place] [address] Patient Name: JAJA DELUNA MR #: [id number] : 1980 Age/Sex: 37/F Req #: [id number] Adm Physician: Ordered by: LAYTON SUE MD Report #: [id number] Location: [place] Room/Bed: Procedure: [id number] NM/HEPTOBILIARY W PHARM Exam Date: 05/15/18 Exam Time: 0900 REPORT STATUS: Signed Hepatobiliary Scan with Gallbladder Ejection Fraction Clinical in formation: 37 F with RUQ abdominal pain x 1 year and severe nausea with meals. Also gallbladder polyps. Technique: Following intravenous administration of 6.6 millicuries of Tc-99m mebrofenin, dynamic images of the abdomen in the anterior projection were obtained through 40 minutes. Sincalide (CCK analog) 1.5 micrograms was administered intravenously over 30 minutes with additional imaging for determination of gallbladder ejection fraction. Discussion: P erfusion of the liver is normal. Extraction of tracer by the liver parenchyma is normal. Tracer appears promptly within the biliary tract. The gallbladder begins to fill by 5 minutes post injection of tracer and fills adequately. Tracer is seen in the small bowel by 16 minutes. The gallbladder ejection fr action with sincalide is 19% (normal greater than 40%). Impression: 1 . Filling of the gallbladder excludes acute cystic duct obstruction/acute cho lecystitis. 2. The decreased gallbladder ejection fraction of 19% supports the clinical diagnosis of chronic cholecystitis/gallbladder dyskinesia. Signed by: Dr. Malena Sewell M.D. on 05/15/2018 7:46 PM Dictated By: MALENA SEWELL MD 45 Transcribed By: MARIA DEL ROSARIO on 05/15/181945 COPY TO: LAYTON SUE MD RAD, CHEST, 2 [id number] 19:40:00Reason for exam:->CHEST PAINepisodes of chest pains with dizziness sob and nausea since yesterdayFINAL REPORT Examination: Two view Chest X-ray. CLINICAL HISTORY: Chest pain. COMPARISON:None. The cardiomediastinal and hilar contours are unremarkable. There is no focal consolidation, pleural effusion, pneumothorax or evidence of overt pulmonary edema. There is no acute bony abnormality. IMPRESSION: No acute abnormality. Signed: Sheyla Sharma MDReport Verified Date/Time: 05/15/2018 19:40:26 Reading Location: [address] Reading Room D-DIMER 2018-05-15 19:38:00* Test Item Value Reference Range Comments D-DIMER QUANTITATIVE (BEAKER) (test ktpm=800) 0.29 MG/L FEU <0.50 REGARDING D-DIMER RESULTS: Results of this D-Dimer test should always be interpr eted in conjunction with the patient's medical history, clinical presentation an d other findings. DVT clinical diagnosis should not be based on the results of I NNOVANCE D-Dimer alone.PT/[id number] 19:32:00* Test Item Value Reference Range Comments PROTIME (BEAKER) (test tlse=331) 10.3 seconds 9.8-12.0 INR (BEAKER) (test wjay=190) 0.9 <=5.9 PARTIAL THROMBOPLASTIN TIME (BEAKER) (test vsmp=185) 23.7 seconds 25.8-34.5 RECOMMENDED COUMADIN/WARFARIN INR THERAPY RANGESSTANDARD DOSE: 2.0 - 3.0 Inclu jazzy: PROPHYLAXIS for venous thrombosis, systemic embolization; TREATMENT for iban ous thrombosis and/or pulmonary embolus.HIGH RISK: Target INR is 2.5-3.5 for pat ients with mechanical heart valves.URINALYSIS W/ REFLEX URINE [id number] 19:28:00* Test Item Value Reference Range Comments COLOR (BEAKER) (test latl=089) Yellow CLARITY (BEAKER) (test axal=085) Clear SPECIFIC GRAVITY UA (BEAKER) (test gxhp=838) 1.010 1.001-1.035 PH UA (BEAKER) (test uuqx=490) 6.0 5.0-8.0 PROTEIN UA (BEAKER) (test mujn=554) Negative Negative GLUCOSE UA (BEAKER) (test ipng=630) Negative Negative KETONES UA (BEAKER) (test jpvh=741) Negative Negative BILIRUBIN UA (BEAKER) (test mpgt=395) Negative Negative BLOOD UA (BEAKER) (test koro=409) Small Negative NITRITE UA (BEAKER) (test iqnm=628) Negative Negative LEUKOCYTE ESTERASE UA (BEAKER) (test cblr=583) Negative Negative UROBILINOGEN UA (BEAKER) (test mkur=353) 1.0 mg/dL 0.2-1.0 BACTERIA (BEAKER) (test kdjs=229) Few YEAST (BEAKER) (test xssq=9704) Rare RBC UA-MANUAL (BEAKER) (test icbc=3064) 5-10 /HPF WBC UA-MANUAL (BEAKER) (test arjf=9118) <5 /HPF SQUAMOUS EPITHELIAL MANUAL (BEAKER) (test suvv=9566) <5 /HPF SOURCE(BEAKER) (test bmpn=6615) SCREEN, [id number] 19:25:00* Test Item Value Reference Range Comments TEST URINE (BEAKER) (test ebem=719) Negative CBC W/PLT COUNT & AUTO [id number] 19:23:00* Test Item Value Reference Range Comments WHITE BLOOD CELL COUNT (BEAKER) (test qysa=772) 8.9 10e3/i? L 4.0-10.0 RED BLOOD CELL COUNT (BEAKER) (test vook=940) 4.45 10e6/i? L 4.00-5.00 HEMOGLOBIN (BEAKER) (test gzhm=388) 13.7 g/dL 12.0-15.0 HEMATOCRIT (BEAKER) (test oxau=609) 41.1 % 36.0-45.0 MEAN CORPUSCULAR VOLUME (BEAKER) (test zydv=297) 92.4 fL 82.0-99.0 MEAN CORPUSCULAR HEMOGLOBIN (BEAKER) (test bwle=539) 30.7 pg 27.0-33.0 MEAN CORPUSCULAR HEMOGLOBIN CONC (BEAKER) (test cmnt=063) 33.2 g/dL 32.0-36.0 RED CELL DISTRIBUTION WIDTH (BEAKER) (test vbpz=137) 13.0 % 10.3-14.2 PLATELET COUNT (BEAKER) (test kpki=926) 343 10e3/i? L 150-430 MEAN PLATELET VOLUME (BEAKER) (test ckio=179) 6.8 fL 6.5-10.5 NEUTROPHILS RELATIVE PERCENT (BEAKER) (test gaka=817) 63 % LYMPHOCYTES RELATIVE PERCENT (BEAKER) (test ycnl=399) 28 % MONOCYTES RELATIVE PERCENT (BEAKER) (test kntv=734) 7 % EOSINOPHILS RELATIVE PERCENT (BEAKER) (test prfx=152) 1 % BASOPHILS RELATIVE PERCENT (BEAKER) (test sfge=562) 1 % NEUTROPHILS ABSOLUTE COUNT (BEAKER) (test fslw=477) 5.63 10e3/i? L 1.80-8.00 LYMPHOCYTES ABSOLUTE COUNT (BEAKER) (test ueoi=930) 2.45 10e3/i? L 1.48-4.50 MONOCYTES ABSOLUTE COUNT (BEAKER) (test gblz=356) 0.65 10e3/i? L 0.00-1.30 EOSINOPHILS ABSOLUTE COUNT (BEAKER) (test sbuk=286) 0.12 10e3/i? L 0.00-0.50 BASOPHILS ABSOLUTE COUNT (BEAKER) (test fmfc=649) 0.05 10e3/i? L 0.00-0.20 US GALLBLADDER [facility] [address] [place] [address] Patient Name: JAJA DELUNA MR #: [id number] : 1980 Age/Sex: 37/F Req #: [id number] Adm Physician: Ordered by: LAYTON SUE MD Report #: [id number] Location: US Room/Bed: Procedure: [id number] US/US GALLBLADDER Exam Date: 04/06/18 Exam Time: 1715 REPORT STATUS: Signed PROCEDURE: US GALLBLADDER COMPARISON: CT, CT ABDOMEN/PELVIS WO, 2011, 20:30. INDICATIONS: ruq pain TECHNIQUE: Damon-scale and color doppler transverse and longitudinal images of the right upper quadrant of the abdomen were obtained. FINDINGS: Liver: 15.6 cm in right mid-clavicular line. Increased echogenicity. No masses. Main portal vein: 1.0 cm, hepatop etal flow Gallbladder: Multiple echogenic, non-shadowing, non-mobile foci are noted in the gallbladder wall at the fundus and body, with the largest measuring 0.5 x 0.6 x 0.5 cm. No sludge. No wall thickening or pericholecyst ic fluid. Common Bile Duct: 0.3 cm Sonographic Bojorquez's sign: Negative Right kidney: 9.6 cm. Normal echogenicity. No solid masses, stones or hydro nephrosis. Pancreas: The visualized portions are unremarkable. Infer ior vena cava: Patent Aorta: Within normal limits Ascites: None in the righ t upper quadrant of the abdomen. CONCLUSION: 1. Multiple gallbladder polyps, with the largest measuring approximately 0.6 cm. Recommend followup r ight upper quadrant ultrasound in 6 months given its size. 2. Borderline to mild hepatomegaly with diffuse fatty infiltration. No focal lesions. Daryn Charles M.D. Dictated by: Daryn Charles M.D. on 04/06 at 18:27 Electronically approved by: Daryn Charles M.D. on 09/2018 at 18:27 Dictated By: DARYN CHARLES MD Electronicall y Signed By: DARYN CHARLES MD on 04/06/181826 Transcribed By: BO on 1826 COPY TO: LAYTON SUE MD
--- NOTE | 2018-11-30 10:39 | Operative Report ---
DATE OF PROCEDURE: November 30, 2018 PREOPERATIVE DIAGNOSES 1. Biliary dyskinesia. 2. Gallbladder polyp. POSTOPERATIVE DIAGNOSES 1. Biliary dyskinesia. 2. Gallbladder polyp. OPERATION PERFORMED: Laparoscopic cholecystectomy. ANESTHESIA: General. COMPLICATIONS: None. ESTIMATED BLOOD LOSS: Minimal. DESCRIPTION OF PROCEDURE: With the patient lying in bed in the supine position under good general endotracheal anesthesia, the abdomen was prepped with Betadine solution and draped in the usual manner. A Veress needle was introduced into the right upper quadrant and pneumoperitoneum was established without any difficulty. A 5-mm trocar was placed in the right subcostal region and a 5 mm video laparoscope was placed into the intra-abdominal cavity. Laparoscopy at this point revealed a well-healed umbilical incision with no sign of any hernia. There were no adhesions to the subumbilical space. An 11-mm trocar was then placed into the umbilicus and a 10 mm video laparoscope was placed into the intra-abdominal cavity. Under direct vision, two 5-mm trocars were placed in the right subcostal region. Video laparoscopy at this point revealed a normal appearing liver. The gallbladder was covered up with adhesions. The bowel that could be visualized was all within normal limits. The appendix was identified and found to be within normal limits. The right ovary and tube appeared to be normal. Examination of the uterus revealed the uterus to be somewhat retroverted, but there was no sign of endometriosis or any sign of other pelvic pathology. The left ovary could not be visualized as it had been removed and was in some kind of retrocecal position as there was some scarring around the end of the left tube. The rest the abdominal exploration was otherwise within normal limits. We went ahead and proceeded with the cholecystectomy. All of the adhesions to the gallbladder were slowly and carefully taken down. The peritoneum overlying the neck of the gallbladder was then opened and the cystic duct was identified. The cystic duct was followed to its junction with the common duct. Cystic duct was then circumferentially dissected away from the common duct, doubly clipped and divided. The cystic artery was similarly doubly clipped and divided. The gallbladder was then slowly and carefully taken off the liver bed using the cautery scissors and perfect hemostasis was ascertained. The gallbladder was grasped through the umbilical port and removed without any difficulty. Video laparoscopy was then again carried out. The liver bed was found to be perfectly dry. All of the excess fluid was aspirated. The pneumoperitoneum was evacuated, and all the trocars were removed under direct vision. The midline fascia at the umbilicus was then closed with a figure-of-8 of 0 Vicryl. All layers were infiltrated on the way out with a solution of 0.25% Marcaine. Subcutaneous tissue was approximated with 3-0 Vicryl and the skin was closed subcuticular 5-0 Vicryl. Benzoin, Steri-Strips and Band-Aids were applied. The sponge, lap and needle count was correct. The patient tolerated the procedure well and returned to the recovery room in stable condition. Job#: [id number] RI
[2018-11-30 11:40] VITALS: BP 104/64
== END | disposition home or self-care (01) ==
LOC: OR 05:52
PROVIDERS: ATTEND Surgery
DX: K81.1 Chronic cholecystitis (principal); K82.8 Other specified diseases of gallbladder; I10 Essential (primary) hypertension; K21.9 Gastro-esophageal reflux disease without esophagitis; N20.0 Calculus of kidney; Z01.810 Encounter for preprocedural cardiovascular examination; Z01.812 Encounter for preprocedural laboratory examination
CPT/HCPCS: 36415; 47562; 80053; 81003; 81025; 85025; 88304; 93005; C1766; J1100; J1170; J1885; J2001; J2250; J2405; J2704; J3490

== ENCOUNTER → 2022-12-09 | Outpatient (CLI) | payer BC ==
[~2022-12-09] MED LIST changes: -BUPIVACAINE 0.5%/EPI 30 ML SDV INJ ONE; -DEXAMETHASONE SOD PHOS INJ 4 MG/ML VIAL ONE; -FENTANYL CITRATE/PF 100MCG/2 ML INJ ONE; -GLYCOPYRROLATE INJ 1MG/ 5 ML SYR ONE; -HYDROCODONE/APAP 7.5MG-325MG 1 EA TAB ONE; -HYDROMORPHONE 2MG/ML 2 MG/ML ML ONE; -KETOROLAC TROMETHAMINE 30 MG/ML VIAL ONE; -LIDOCAINE HCL 2% LOCAL INJ 5 ML SDV VIAL INJ ONE; -MIDAZOLAM HCL 2 MG/2 ML VIAL ONE; -NEOSTIGMINE 5 MG/5ML SYR ONE; -ONDANSETRON HCL INJ 2 MG/ML VIAL ONE; -PROPOFOL IV EMULSION 10 MG/ML 20 ML VIAL ONE; -ROCURONIUM BROMIDE 10 MG/ML 5ML VIAL ONE; -SEVOFLURANE INHAL SOLN 250 ML PEN BTL ONE
== END ==
LOC: CT 07:48
PROVIDERS: ATTEND Family Medicine
DX: R10.30 Lower abdominal pain, unspecified (principal); N28.9 Disorder of kidney and ureter, unspecified
CPT/HCPCS: 74176

== ENCOUNTER 2024-08-31 13:17 | Emergency (ER) | payer BC ==
[~2024-08-31] VITALS: Ht 157.5 cm; Wt 77.1 kg
[2024-08-31 13:42] VITALS: PULSE 108; RESP 20; TEMP 97.9
[2024-08-31] MEDS ORDERED: LACTATED RINGER'S 1,000 ML IV ONE (13:45)
[2024-08-31] MEDS ORDERED: SODIUM CHLORIDE 0.9% 1000ML 1,000 ML ONE (14:02)
[2024-08-31] MEDS: ONDANSETRON HCL INJ 2MG/ML 2ML 2 MG/ML VIAL IV ONE (14:19)
[2024-08-31] MEDS: FAMOTIDINE 20 MG/2 ML VIAL IV ONE (14:19)
[2024-08-31] MEDS: KETOROLAC TROMETHAMINE 30 MG/ML VIAL IV ONE (14:19)
[2024-08-31] MEDS: SODIUM CHLORIDE 0.9% 1000ML 1,000 ML IV STA (14:20)
[2024-08-31] MEDS: ACETAMINOPHEN 325 MG TAB PO ONE (14:20)
[2024-08-31] MEDS ORDERED: MAALOX MAXIMUM355 ML PO (15:39)
[2024-08-31] MEDS ORDERED: FAMOTIDINE20 MG PO (15:39)
[2024-08-31] MEDS ORDERED: ONDANSETRON ODT4 MG PO (15:39)
[2024-08-31] MEDS ORDERED: POTASSIUM CHLO20 ME1 PO (15:40)
[2024-08-31 16:15] VITALS: BP 122/78; PULSE 86; RESP 16; TEMP 98.2; O2SAT 98
== END 2024-08-31 16:18 | disposition home or self-care (01) ==
LOC: FSED 13:20
DX: R11.2 Nausea with vomiting, unspecified (principal); K52.9 Noninfective gastroenteritis and colitis, unspecified; R10.30 Lower abdominal pain, unspecified; E87.6 Hypokalemia; R00.0 Tachycardia, unspecified; R94.31 Abnormal electrocardiogram [ECG] [EKG]
CPT/HCPCS: 80053; 85025; 99283; J1885; J2405; J7030